=== PATIENT | female | born 1965 ===

== ENCOUNTER 2017-02-04 15:54 | Emergency (ER) | payer BC, MEDICAID ==
[2017-02-04 16:10] VITALS: TEMP 98.1
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
[2017-02-04 17:09] VITALS: BP 124/72; PULSE 75; RESP 18
[2017-02-04 17:47] VITALS: O2SAT 100
== END 2017-02-04 17:09 | disposition home or self-care (01) ==
LOC: C.ER 15:54
DX: S00.83XA Contusion of other part of head, initial encounter (principal); Y08.89XA Assault by other specified means, initial encounter; F07.81 Postconcussional syndrome